=== PATIENT | female | born 1950 | race Caucasian/White ===

== ENCOUNTER 2016-10-13 09:44 | Inpatient (IN) | payer OTHER ==
--- NOTE | 2016-10-12 11:00 | GHP ---
[f rep st] PREOP HISTORY AND PHYSICAL DATE OF ADMISSION: 10/13/2016 PROBLEM: Right knee degenerative arthritis. HISTORY OF PRESENT ILLNESS: The patient is a 66-year-old woman admitted for right total knee arthro plasty. She has had progressive pain and deformity in both knees for the past several years. Her r ight knee is more painful than the left. In March 2016, she had viscosupplementation injections in her hometown of [place], [place]. They did not help. She is having daily pain. Her knees are painful going up and down stairs. She takes Aleve every day. Her activities of daily living are ve ry limited. She has failed physical therapy, oral anti-inflammatory medication and viscosupplementa tion injections. PAST MEDICAL HISTORY: Overall, she is in excellent general health. I have done bilateral total hip arthroplasties on her. No history of coronary artery disease, DVT, hepatitis or sleep apnea. CURRENT MEDICATIONS: None. DRUG ALLERGIES: None. METAL ALLERGY: None. FAMILY HISTORY: Positive for cancer and arthritis. PHYSICAL EXAMINATION: GENERAL: She is a thin healthy-appearing woman. Height 5 feet 7 inches. We ight 125 pounds. BMI 19.6. EYES: The conjunctivae and sclerae are clear. Pupils are round and re active. MOUTH: Good oral hygiene. No loose teeth. CHEST: Clear. HEART: Regular rhythm. No mu rmurs. EXTREMITIES: Pertinent findings limited to her right knee. She has full extension and 130 degrees of flexion. A mild effusion is present. She has increased valgus alignment. Mild pseudola xity of her lateral collateral ligament. IMAGING: Her films show advanced lateral compartment degenerative arthritis, she is sgnk-ps-eome. She has subchondral sclerosis and peripheral osteophytes. Increased valgus alignment is present. IMPRESSION ON ADMISSION: 1. Bilateral knee severe degenerative arthritis with valgus deformity. 2. Status post bilateral total hip arthroplasties. PLAN: She will undergo a right total knee arthroplasty. The surgery has been described to her, inc luding the risks, complications, expectations and recovery time. I have stressed the importance of postoperative physical therapy. I have advised her that a small percentage of people do not get a g ood result with a total knee replacement. All her questions have been answered, and she consents to surgery. Copy requested to: Dr. Earnestine Livingston [address] [place] [id number] /[id number]/MODL
[2016-10-12 11:43] LABS: % IMMATURE GRANULYOCYTES 0.2 % (0.0-1.1); ABSOLUTE IMMATURE GRANULOCYTES 0.01 10^3/uL (0.00-0.10); ADD DIFF? NO; ADD MORPH? NO; ADD SCAN? NO; ATYPICAL LYMPHOCYTE FLAG 0 (0-99); FRAGMENT RBC FLAG 0 (0-99); HEMATOCRIT 42.5 % (38.0-47.0); HEMOGLOBIN 14.3 g/dL (12.6-16.3); LEFT SHIFT FLG 0 (0-99); LIPEMIA HEMOLYSIS FLAG 80 (0-99); MEAN CELL HEMOGLOBIN 31.5 pg (27.9-34.1); MEAN CELL HEMOGLOBIN CONCENTR. 33.6 g/dL (32.4-36.7); MEAN CELL VOLUME 93.6 fL (81.5-99.8); MEAN PLATELET VOLUME 9.6 fL (8.7-11.7); PLATELET CLUMPS FLAG 0 (0-99); PLATELET COUNT 300 10^3/uL (150-400); RED BLOOD CELL COUNT 4.54 10^6/uL (4.18-5.33); RED CELL DISTRIBUTION WIDTH 13.1 % (11.5-15.2)
[~2016-10-13 09:44] MED LIST: ACETAMINOPHEN 325 MG TAB PO ONE; CEFAZOLIN 2 GM/DEXTR 100 ML IV ONE; CHLORHEXIDINE GLUC HIBICLENS 118 ML BTL TP ONE; DEXAMETHASONE 4 MG/ML VIAL IVP ONE; FAMOTIDINE 20 MG TAB PO ONE; NS IV ONE; POVIDONE-IODINE 20 ML in SODIUM CL IRRIG SOLUTION 500 ML IRR ONE; ROPI/epiNEPH/KETOROLAC JOINT COCKTAIL IU ONE; TRANEXAMIC ACID IV ONE; VANCOMYCIN 1 GM VIAL IV ONE; ceFAZolin 1 GM/5 ML SYR ONE
[2016-10-13] MEDS ORDERED: LIDOCAINE 1% 2 ML INJ ONE (10:00)
[2016-10-13] MEDS ORDERED: ACETAMINOPHEN 325 MG TAB ONE (10:01)
[2016-10-13] MEDS ORDERED: DEXAMETHASONE 4 MG/ML VIAL ONE (10:01)
[2016-10-13] MEDS ORDERED: FAMOTIDINE 20 MG TAB ONE (10:01)
[2016-10-13] MEDS ORDERED: CEFAZOLIN 2 GM/DEXTROSE/100 ML BAG IV ONE (10:02)
[2016-10-13] MEDS ORDERED: LIDOCAINE 1% 5 ML SDV ID PRN (10:37)
[2016-10-13] MEDS ORDERED: LR 1,000 ML IV ONE (10:37)
[2016-10-13] MEDS ORDERED: MIDAZOLAM 2 MG/2 ML VIAL ONE (11:28)
[2016-10-13] MEDS ORDERED: fentaNYL 100 MCG/2 ML INJ ONE (11:33)
[2016-10-13] MEDS ORDERED: PROPOFOL/EMULSION 500 MG/50 ML BOTTLE IV ONE (11:34)
[2016-10-13] MEDS ORDERED: PROPOFOL 200 MG/20 ML VIAL ONE ×3 (12:49→13:47)
[2016-10-13] MEDS ORDERED: traMADol 50 MG TAB PO PRN (13:41)
[2016-10-13] MEDS ORDERED: TEMAZEPAM 15 MG CAP PO PRN (13:41)
[2016-10-13] MEDS ORDERED: ONDANSETRON DISINTEGRATING 4 MG TAB PO PRN (13:41)
[2016-10-13] MEDS ORDERED: PHARMACY PAIN CONSULT 1 EA MISC PRN (13:41)
[2016-10-13] MEDS ORDERED: BISACODYL 10 MG SUPP PR PRN (13:41)
[2016-10-13] MEDS ORDERED: PROMETHAZINE HCL 25 MG SUPPR PR PRN (13:41)
[2016-10-13] MEDS ORDERED: ONDANSETRON 4 MG/2 ML VIAL IVP PRN (13:41)
[2016-10-13] MEDS ORDERED: DIPHENOXYLATE/ATROPINE LOMOTIL 1 TAB PO PRN (13:41)
[2016-10-13] MEDS ORDERED: KETOROLAC 30 MG/1 ML SDV IVP PRN (13:41)
[2016-10-13] MEDS ORDERED: NS 500 ML IV PRN (13:41)
[2016-10-13] MEDS ORDERED: POLYETHYLENE GLYCOL 3350 17 GM PKT PO PRN (13:41)
[2016-10-13] MEDS ORDERED: diphenhydrAMINE 25 MG CAP PO PRN (13:41)
[2016-10-13] MEDS ORDERED: METOCLOPRAMIDE 10 MG/2 ML VIAL IVP PRN (13:41)
[2016-10-13] MEDS ORDERED: LACTULOSE 20 GM/30 ML UDCUP PO PRN (13:41)
[2016-10-13] MEDS ORDERED: MAGNESIUM HYDROXIDE 30 ML UDCUP PO PRN (13:41)
--- NOTE | 2016-10-13 13:41 | POSTOPPROG ---
Post Op Note Date of Operation: 10/13/16 Surgeon: Rolando Renteria Round Kiln Drawer: Lico/Camilla Anesthesiologist: Gregory Anesthesia: IV Sedation, Spinal Post-op Diagnosis: right knee arthritis Procedure: R TKA Inf/Abcess present in the surg proc area at time of surgery?: No EBL: 100-500
[2016-10-13] MEDS ORDERED: ACYCLOVIR 400 MG TAB PO PRN (13:43)
[2016-10-13] MEDS ORDERED: LR 1,000 ML IV SCH (14:00)
--- NOTE | 2016-10-13 14:54 | GOP ---
[f rep st] OPERATIVE REPORT DATE OF OPERATION: 10/13/2016 SURGEON: Rolando Renteria MD MECHANICAL EQUIPMENT SALES ENGINEER: Alfred Barfield CFA and Nury Burkett RN. ANESTHESIA: A combination of Marcaine spinal and IV sedation and adductor canal block. ANESTHESIOLOGIST: Marck Jenkins MD. PREOPERATIVE DIAGNOSIS: Right knee severe degenerative arthritis. POSTOPERATIVE DIAGNOSIS: Right knee severe degenerative arthritis with valgus deformity. PROCEDURE PERFORMED: Right total knee arthroplasty, subvastus approach, cemented, Carmen and Nephew Journey II, posterior stabilized. FINDINGS: DESCRIPTION OF PROCEDURE: The patient was given 2 g of preoperative IV Ancef within 60 minutes of s urgery. She also received a double dose of IV tranexamic acid at a dose of 10 mg/kg. She was place d on the operating room table and given spinal anesthesia with Marcaine by Dr. Jenkins. She was then placed supine and given IV sedation. A Glaser catheter was not used. She wore a PREMA stocking and S CD on the nonoperative leg. Her right lower extremity was prepped with ChloraPrep from the upper thigh tourniquet to the tips of the toes. It was draped free using sterile sheets, stockinette, and Ioban plastic adhesive drape. The right lower leg was wrapped with Coban. The leg was exsanguinated with elevation and a 6-inch compressive wrap, and the tourniquet was inflated to 250 mmHg. The [employer] time-out was performed to verify the correct patient identity and the correct surgical site and side. The [place] time-out was also performed. The QFPayayo leg holding device was sterilely attached to the operating room table and used throughout the procedure to help position the knee. A straight midline incision was made centered on the ivy lla. Subcutaneous tissues were sharply divided, and hemostasis was obtained using electrocautery. A medial subcutaneous flap was developed. I was using the subvastus approach. I made a slightly ob lique incision through the medial capsule beginning at about the midpoint of the patella. This was extended proximally along the posteromedial margin of the vastus medialis, dissecting it off the pos teromedial intermuscular septum. This allowed me to mobilize the entire vastus medialis and quadric eps to sublux the patella laterally. I completed the arthrotomy distally in a medial parapatellar f ashion. The medial capsule and periosteum were elevated off the rim of the medial tibial plateau al l around to the posteromedial corner. A medial collateral ligament was released enough to balance t he medial side of the knee. In order to improve exposure, her patella was prepared first. The original thickness of the patella was measured. Peripheral osteophytes were removed. I cut a flat surface on the back of the leo richards. She was sized for a 38 mm resurfacing component. I removed enough bone from the patella such th at the remaining bone plus the thickness of the patella recreated the original thickness of the biju lla. The composite thickness of her patella was 24 mm. The intramedullary alignment guide system was used to set up the distal femoral cut. The distal fem ur was cut in 5 degrees of valgus. I made a +2 mm cut on the distal femur. The sizing jig was used to determine proper femoral sizing. She was a true size 5 without shifting the jig. The 5-in-1 cu tting block was applied, and the anterior and posterior condylar cuts and chamfer cuts were made. T he final jig was used to remove the central portion of the distal femur to accommodate the posterior stabilized femoral component. I was careful to achieve proper rotation by referencing off [place] line. Each cut was checked for accuracy before and after it was made. Her femur was sized for a size 5 posterior stabilized component. The trial component was tapped securely into place and was a good fit. Next, the tibia was prepared. The proximal tibial cut was made using the extramedullary alignment g uide system. The cut was made in a few degrees of posterior slope. I was careful to achieve proper varus/valgus alignment and proper rotation. The posterior compartment was cleared of meniscal remn ants. Osteophytes were removed from the back of the femoral condyles. I checked the flexion and ex tension gaps, and they were equal, balanced and rectangular. The tibia was sized for a size 4 component. With the trial components in place, I selected a 10 mm polyethylene posterior stabilized tibial insert. The knee came to full extension and flexed to 130 degrees. There was no overstuffing in flexion. Her collateral ligaments were stable and balanced i n 90 degrees of flexion and full extension. The trial button was applied. Patellar tracking was ch ecked. Tracking was excellent without any digital pressure. 40 mL of the joint anesthetic cocktail were injected into the posterior capsule, the periarticular s tructures, the quadriceps muscle and tendon areas, and the subcutaneous tissues along the skin edges . I did not administer a 2nd dose of IV tranexamic acid because she received a double dose at the b eginning of the case. The surfaces were prepared for cementing. They were carefully cleaned with a pulsating lavage irrigation and thoroughly dried. The CarboJet device was used to blow dry the can cellous surfaces. A double batch of high viscosity cement with 2 g of powdered vancomycin added was mixed. All 3 components were cemented in place. Excess cement was removed before it hardened. The 10 mm tibial insert was re-tried and was the proper thickness. The actual component was inserte d and locked into place. The knee was thoroughly irrigated 1 final time with a dilute Betadine solu tion. The pneumatic tourniquet was deflated, and the total tourniquet time was 60 minutes. The med ial capsule was closed first with a couple of interrupted onjutn-vw-yxtyf #2 FiberWire sutures. The capsule and synovium were closed first with multiple dzilji-ue-wyfqo 0 PDS sutures, followed by a running 0 barbed Ethicon Stratafix Monoderm suture. The skin was closed with a running 3-0 barbed Ethicon Stratafix Monoderm subcuticular suture. The skin was sealed with 1/2-inch Steri-Strips. T he wound was covered with Xeroform, gauze and flat 4 x 4's, and the knee was wrapped with a Kerlix a nd a 6-inch compressive wrap. A long-leg PREMA stocking and SCD were applied, followed by the cooling device. The patient wore a stocking and SCD on the opposite leg during the procedure. I used a size 5 cemented Carmen and Nephew Oxinium posterior stabilized femoral component, a size 4 c emented tibial base plate, a 10 mm posterior stabilized tibial insert, and a 38 mm cemented, round a ll-polyethylene resurfacing patellar component. The estimated blood loss following deflation of the tourniquet was about 100 mL. The sponge and needle count were correct on 2 occasions. The patient was awakened from anesthesia, [facility] and [facility] to [facility] in sa tisfactory condition. There were no recognized intraoperative complications. In the recovery room, for additional postoperative pain control, Dr. Marck Jenkins administered an adductor canal block. Alfred Barfield and Nury Burkett acted as surgical assistants. Their assistance was a medical necess ity. Copy requested to: Dr. [place], [place] /[id number]/MODL
[2016-10-13] MEDS: ACETAMINOPHEN 325 MG TAB PO SCH (17:22)
[2016-10-13] MEDS: oxyCODONE IR 5 MG TAB PO PRN ×3 (17:22→21:37)
[2016-10-13] MEDS: ASPIRIN 325 MG TAB PO SCH (19:45)
[2016-10-13] MEDS: ceFAZolin 2 GM/DEXTROSE 100 ML IV SCH (19:46)
[2016-10-13] MEDS: SENNOSIDES/DOCUSATE SODIUM TAB PO SCH (19:46)
[2016-10-13] MEDS: FAMOTIDINE 20 MG TAB PO SCH (19:46)
[2016-10-14] MEDS: CYCLOBENZAPRINE 10 MG TAB PO PRN ×2 (00:01→07:57)
[2016-10-14] MEDS: oxyCODONE IR 5 MG TAB PO PRN ×4 (00:29→11:43)
[2016-10-14 04:59] LABS: HEMATOCRIT 35.1 % (38.0-47.0); HEMOGLOBIN 11.7 g/dL (12.6-16.3)
[2016-10-14] MEDS: ceFAZolin 2 GM/DEXTROSE 100 ML IV SCH (05:03)
[2016-10-14] MEDS: ACETAMINOPHEN 325 MG TAB PO SCH ×3 (05:03→11:43)
[2016-10-14] MEDS: SENNOSIDES/DOCUSATE SODIUM TAB PO SCH (07:56)
[2016-10-14] MEDS: ASPIRIN 325 MG TAB PO SCH (07:56)
[2016-10-14] MEDS: FAMOTIDINE 20 MG TAB PO SCH (07:57)
[2016-10-14] MEDS ORDERED: FERROUS SULFATE 140 MG TAB.ER PO SCH (09:00)
--- NOTE | 2016-10-14 09:25 | SOAPPROG ---
SOAP Progress Note Assessment/Plan: Assessment: Afebrile. Awake and alert. Moderate pain. Light headed when up. Has walked and done stairs. Dsg is dry. H/H is good. Plan:Up with PT. Home later today if stable. 10/14/16 09:24 Objective: Vital Signs Temp Pulse Resp BP Pulse Ox 36.6 C 64 16 111/62 98 10/14/16 05:04 10/14/16 05:04 10/14/16 05:04 10/14/16 05:04 10/14/16 05:04 Laboratory Results 10/14/16 04:27 10/13/16 10/14/16 10/15/16 05:59 05:59 05:59 Intake Total 1910 Output Total 1375 Balance 535 ICD10 Worksheet Patient Problems: Problems Problem Status Onset Osteoarthritis of right knee Acute Primary osteoarthritis of left hip Acute
--- NOTE | 2016-10-14 10:06 | GDS ---
[f rep st] DISCHARGE SUMMARY ADMISSION DIAGNOSIS: Right knee severe degenerative arthritis with valgus deformity. DISCHARGE DIAGNOSIS: Right knee severe degenerative arthritis with valgus deformity. OPERATION PERFORMED: 10/13/2016, a right total knee arthroplasty. POSTOPERATIVE COMPLICATIONS: None. CONDITION ON DISCHARGE: Improved. DESCRIPTION OF HOSPITAL COURSE: The patient was admitted to the hospital on the morning of surgery. Her admission CBC was normal. The same day, under a combination of spinal anesthesia with Marcaine, IV sedation and an adductor canal block, she underwent a right total knee arthroplasty. Postoperatively, she was treated with multimodal DVT prophylaxis including early mobilization and aspirin. On the first postoperative day, her hemoglobin and hematocrit were 11.7 and 35.1. She did not require any transfused blood. She experienced some early postural hypotension. She was seen by Physical Therapy and made satisfactory progress with ambulation and stairs. DISPOSITION: The patient is discharged to her home in [place], [place]. She will start outpatient physical therapy next week. Continue aspirin 325 mg p.o. daily for 21 days. She has prescriptions for oxycodone and tramadol for pain control. Use PREMA stockings for 1 week. I will see her back in the office on October 22, 2016. If there are any problems, she is to call me at the office. Copy requested to: Dr. Edwin Smyth [place], [place] /[id number]/MODL MTDD
[2016-10-14 11:34] VITALS: RESP 14; TEMP 97.6
[2016-10-14 11:35] VITALS: BP 112/60; PULSE 71; O2SAT 98
== END 2016-10-14 15:30 | disposition home or self-care (01) | DRG 470 ==
LOC: F3E 09:44 → F3N 15:14
PROVIDERS: ADMIT Orthopaedic Surgery; ATTEND Orthopaedic Surgery
PROC: 0SRC0J9 Replacement of Right Knee Joint with Synthetic Substitute, Cemented, Open Approach (ICD-10-PCS; principal; 2016-10-13 11:30)
DX: M17.11 Unilateral primary osteoarthritis, right knee (principal); M21.061 Valgus deformity, not elsewhere classified, right knee; Z96.643 Presence of artificial hip joint, bilateral
CPT/HCPCS: 97116-GP; 97161-GP; 97165-GO; C1713; G8978-GP-CI; G8979-GP-CI; G8980-GP-CI; G8984-GO-CI; G8985-GO-CI; G8986-GO-CI; J0171; J0690; J1100; J1885; J2250; J2704; J2795; J3010; J3370

== ENCOUNTER 2016-12-08 09:51 | Inpatient (IN) | payer OTHER ==
--- NOTE | 2016-12-07 14:46 | GHP ---
[f rep st] PREOP HISTORY AND PHYSICAL DATE OF ADMISSION: 12/08/2016 She will be an a.m. admission for surgery at [facility] on Thursday, December 08, 2016. PROBLEM: Left knee advanced degenerative arthritis. HISTORY OF PRESENT ILLNESS: The patient is a 66-year-old woman, admitted for a left total knee arth roplasty. She has had progressive pain and deformity in both knees over the past several years. Rozina abrams has tried viscosupplementation injections, which did not help. She is having daily pain. Her kne es are painful going up and down stairs. She is taking Aleve every day. Her activities are very li mited. She has failed physical therapy, oral anti-inflammatory medication, and viscosupplementation injections. She underwent a right total knee arthroplasty on October 13, 2016, and she is making sat isfactory progress. She will undergo a left total knee arthroplasty now. PAST MEDICAL HISTORY: Excellent general health. No history of heart disease, DVT, hepatitis, or sl eep apnea. I have done bilateral total hip arthroplasties. CURRENT MEDICATIONS: None. DRUG ALLERGIES: None. METAL ALLERGY: None. FAMILY HISTORY: Positive for cancer and arthritis. PHYSICAL EXAMINATION: GENERAL: She is a thin, healthy-appearing woman. Height 5 feet 7 inches. W eight 125 pounds. BMI 19.6. EYES: The conjunctivae and sclerae are clear. Pupils are round and r eactive. MOUTH: Good oral hygiene. No loose teeth. CHEST: Clear. HEART: Regular rhythm. No m urmurs. EXTREMITIES: Pertinent findings are limited to her left knee. She has full extension and 125 degrees of flexion. A mild effusion is present. She has slightly increased valgus alignment. Mild pseudolaxity of her lateral collateral ligament. IMAGING: Films show lateral compartment degenerative arthritis. She has subchondral sclerosis and peripheral osteophytes. Mildly increased valgus alignment is present. IMPRESSION: 1. Left knee degenerative arthritis. She will undergo a left total knee arthroplasty. 2. Eight weeks status post right total knee arthroplasty. 3. Status post bilateral total hip arthroplasties. PLAN: She will undergo a left total knee arthroplasty. The surgery has been described to her, incl uding the risks, complications, expectations, and recovery time. I have stressed the importance of postoperative physical therapy. She understands that a small percentage of people do not obtain a s atisfactory result with a total knee replacement. I have also advised her that with bilateral proce dures there can be mild sftp-jf-hlhp differences in the recovery and even in the final result. All her questions have been answered, and she consents to surgery. Copy requested to: Dr. Earnestine Livingston [address] [place], [place] [address] /[id number]/MODL
[~2016-12-08 09:51] MED LIST changes: -VANCOMYCIN 1 GM VIAL IV ONE; -ceFAZolin 1 GM/5 ML SYR ONE
[2016-12-08] MEDS ORDERED: VANCOMYCIN 1 GM VIAL ONE (10:30)
[2016-12-08] MEDS ORDERED: ceFAZolin 1 GM/5 ML SYR ONE (10:31)
[2016-12-08] MEDS ORDERED: DEXAMETHASONE 4 MG/ML VIAL ONE ×2 (10:48→12:32)
[2016-12-08] MEDS ORDERED: FAMOTIDINE 20 MG TAB ONE (10:48)
[2016-12-08] MEDS ORDERED: ACETAMINOPHEN 325 MG TAB ONE (10:49)
[2016-12-08] MEDS ORDERED: CEFAZOLIN 2 GM/DEXTROSE/100 ML BAG IV ONE (10:49)
[2016-12-08] MEDS ORDERED: MIDAZOLAM 2 MG/2 ML VIAL ONE (11:47)
[2016-12-08] MEDS ORDERED: fentaNYL 100 MCG/2 ML INJ ONE ×2 (11:53→13:25)
[2016-12-08] MEDS ORDERED: PROPOFOL/EMULSION 500 MG/50 ML BOTTLE IV ONE (11:54)
[2016-12-08] MEDS ORDERED: ONDANSETRON 4 MG/2 ML VIAL ONE (12:32)
[2016-12-08] MEDS ORDERED: ROPIVACAINE HCL 150 MG/30 ML INJ ONE (13:25)
--- NOTE | 2016-12-08 13:31 | POSTOPPROG ---
Post Op Note Date of Operation: 12/08/16 Surgeon: Rolando Renteria Web Sizer: Clifton/Luz Anesthesiologist: Beatriz Anesthesia: IV Sedation, Spinal Post-op Diagnosis: left knee arthritis Procedure: L TKA Inf/Abcess present in the surg proc area at time of surgery?: No EBL: 50-100 (Add canal block)
[2016-12-08] MEDS ORDERED: ACYCLOVIR 400 MG TAB PO PRN (13:46)
[2016-12-08] MEDS ORDERED: traMADol 50 MG TAB PO PRN (13:47)
[2016-12-08] MEDS ORDERED: POLYETHYLENE GLYCOL 3350 17 GM PKT PO PRN (13:47)
[2016-12-08] MEDS ORDERED: DIPHENOXYLATE/ATROPINE LOMOTIL 1 TAB PO PRN (13:47)
[2016-12-08] MEDS ORDERED: ONDANSETRON DISINTEGRATING 4 MG TAB PO PRN (13:47)
[2016-12-08] MEDS ORDERED: PROMETHAZINE HCL 25 MG SUPPR PR PRN (13:47)
[2016-12-08] MEDS ORDERED: diphenhydrAMINE 25 MG CAP PO PRN (13:47)
[2016-12-08] MEDS ORDERED: MAGNESIUM HYDROXIDE 30 ML UDCUP PO PRN (13:47)
[2016-12-08] MEDS ORDERED: METOCLOPRAMIDE 10 MG/2 ML VIAL IVP PRN (13:47)
[2016-12-08] MEDS ORDERED: LACTULOSE 20 GM/30 ML UDCUP PO PRN (13:47)
[2016-12-08] MEDS ORDERED: PHARMACY PAIN CONSULT 1 EA MISC PRN (13:47)
[2016-12-08] MEDS ORDERED: ONDANSETRON 4 MG/2 ML VIAL IVP PRN (13:47)
[2016-12-08] MEDS ORDERED: TEMAZEPAM 15 MG CAP PO PRN (13:47)
[2016-12-08] MEDS ORDERED: NS 500 ML IV PRN (13:47)
[2016-12-08] MEDS ORDERED: BISACODYL 10 MG SUPP PR PRN (13:47)
[2016-12-08] MEDS ORDERED: CYCLOBENZAPRINE 10 MG TAB PO PRN (13:47)
[2016-12-08] MEDS ORDERED: LR 1,000 ML IV SCH (14:00)
--- NOTE | 2016-12-08 15:31 | GOP ---
[f rep st] OPERATIVE REPORT DATE OF OPERATION: 12/08/2016 SURGEON: Rolando Renteria MD JUKEBOX OPERATOR: Tirso Lazo, PAC, and Alfred Barfield CFA. ANESTHESIA: A combination of Marcaine spinal, IV sedation, and adductor canal block. ANESTHESIOLOGIST: Macy Henderson MD. PREOPERATIVE DIAGNOSIS: Left knee degenerative arthritis with valgus deformity. POSTOPERATIVE DIAGNOSIS: Left knee degenerative arthritis with valgus deformity. PROCEDURE PERFORMED: Left total knee arthroplasty, cemented, Carmen and Nephew Journey II, posterior stabilized. FINDINGS: DESCRIPTION OF PROCEDURE: The patient was given 2 g of preoperative IV Ancef within 60 minutes of s urgery. She also received IV tranexamic acid at a dose of 10 mg/kg. She was placed on the operatin g room table and given spinal anesthesia with Marcaine by Dr. Henderson. She was then placed supine an d given IV sedation. A Glaser catheter was not used. A PREMA stocking and SCD were placed on the nono perative leg. Her left lower extremity was prepped with ChloraPrep from the upper thigh tourniquet to the tips of the toes. It was draped free using sterile sheets, stockinette, and Ioban plastic ad hesive drape. The lower leg was wrapped with compressive Coban. The leg was exsanguinated with elevation and a 6- inch compressive wrap, and the pneumatic tourniquet was inflated to 250 mmHg. The [facility] time-out was performed to verify the correct patient identity and the correct surgical side and site. The [place] time-out was also performed. The [facility] leg holding device was sterilely attached to the operating room table and used throughou t the procedure to help position the knee. A straight midline incision was made, centered on the pa tella. Subcutaneous tissue was sharply divided and hemostasis was obtained using electrocautery. A medial subcutaneous flap was developed and the capsule and synovium were opened in a medial parapat ellar fashion. Extensive degenerative changes were present in her lateral compartment. She was ero ded down to subchondral bone on her lateral femoral condyle. The medial capsule and periosteum were elevated off the rim of the medial tibial plateau all the way around to the posterior medial corner . Her medial collateral ligament was released enough to balance the medial side of the knee. In order to improve exposure, her patella was prepared first. The original thickness of the patella was measured. Peripheral osteophytes were removed. I cut a flat surface on the back of the leo richards. It was sized for a 38 mm resurfacing component. I removed enough bone from the patella such pricilla t the remaining bone plus the thickness of the patellar component recreated the original thickness o f the patella. The composite thickness was 25 mm. The intramedullary alignment guide system was used to set up the distal femoral cut. She had a left total hip arthroplasty and I was careful not to advance the IM azalea too far proximally. The distal cut was made in 5 degrees of valgus. Because of a slight preoperative flexion contracture, I made a +2 mm cut on the distal femur. The sizing jig was used to determine proper femoral sizing. I shif prema the size 5 jig anteriorly 1 mm in order to accommodate the size 5 without notching the anterior cortex. The 5-in-1 cutting block was applied, and the anterior and posterior condylar cuts were mad e. The final jig was used to remove the central portion of the distal femur to accommodate the post erior stabilized femoral component. I was careful to determine proper rotation by referencing off [place] line. Each cut was checked for accuracy before and after it was made. Her femur was sized for a size 5 posterior stabilized component. The trial component was tapped securely into place an d was a good fit. Next, the tibia was prepared. The proximal tibial cut was made using the extramedullary alignment g uide system. The cut was made in a few degrees of posterior slope. I was careful to achieve proper varus/valgus alignment and proper rotation. The posterior compartment was cleared of meniscal remn ants. Osteophytes were removed from the back of her femoral condyles. I checked the flexion extens ion gaps, and they were equal, balanced and rectangular. The tibia was sized for a size 4 component. With the trial components in place, I selected a 9 mm p olyethylene posterior stabilized tibial insert. The knee came to full extension and flexed to 130 d egrees. There was no overstuffing in flexion. Her collateral ligaments were stable and balanced in 90 degrees of flexion and full extension. The trial patellar button was applied, and patellar trac andria was checked. Tracking was excellent without any digital pressure. 40 mL of joint anesthetic cocktail was injected in the posterior capsule, the periarticular structur es, the quadriceps muscle and tendon areas, and the subcutaneous tissues along with skin edges. A s econd dose of IV tranexamic acid was given at a dose of 10 mg/kg. The surfaces were prepared for cementing. They were carefully cleaned with the pulsating lavage irr igation and thoroughly dried. The CarboJet device was used to blow dry the cancellous surfaces. A double batch of high viscosity methylmethacrylate cement with 2 g of powdered vancomycin added was m ixed. While it was still in a semiliquid state, all 3 components were cemented in place. Excess ce ment was removed before it hardened. The 9 mm trial tibial insert was re-tried and was the proper thickness. The actual component was in serted and locked into place. The knee was thoroughly irrigated 1 final time with a dilute Betadine solution. The tourniquet was deflated. Total tourniquet time was 45 minutes. The vastus medialis portion of the extensor mechanism was repaired with several interrupted figure-o f-eight #2 FiberWire sutures. The capsule and synovium were closed first with multiple interrupted tznpso-eb-atmdz 0 PDS sutures, followed by a running #2 barbed Ethicon Stratafix PDO suture. The chu bcutaneous tissues were closed with a running 0 barbed Ethicon Stratafix Monoderm suture. The skin was closed with a running 3-0 barbed Ethicon Stratafix Monoderm subcuticular suture. The skin was s ealed with half-inch Steri-Strips. The wound was covered with Xeroform gauze and flat 4 x 4's. The knee was wrapped with Kerlix and a 6-inch compressive wrap. A long-leg PREMA stocking and SCD were a pplied followed by the cooling device. She wore a stocking and SCD on the opposite leg during the p rocedure. I used a size 5 cemented Carmen and Nephew Oxinium posterior stabilized femoral component, size 4 anastasiya ented tibial base plate, 9 mm posterior stabilized tibial insert, and a 38 mm cemented round all-kellen yethylene resurfacing patellar component. The estimated blood loss following deflation of the tourniquet was about 100 mL. The sponge and needle count were correct on 2 occasions. She was awakened from anesthesia, transferred [facility], and taken to PACU in satisfact ory condition. There were no intraoperative complications. In the recovery room, for additional postoperative pain control, Dr. Henderson performed an adductor ca nal block. Alfred Barfield and Michael Lazo acted as surgical assistants. Their assistance was a medical haleigh bailey. Copy requested to: Dr. Earnestine Livingston [address] [place] [address] [place] [address] /[id number]/MODL
[2016-12-08] MEDS: ACETAMINOPHEN 325 MG TAB PO SCH ×2 (18:04→23:50)
[2016-12-08] MEDS: oxyCODONE IR 5 MG TAB PO PRN ×3 (18:05→23:56)
[2016-12-08] MEDS: KETOROLAC 30 MG/1 ML SDV IVP PRN ×2 (18:05→23:51)
[2016-12-08] MEDS: TRANEXAMIC ACID 650 MG TAB PO SCH (20:41)
[2016-12-08] MEDS: FAMOTIDINE 20 MG TAB PO SCH (20:42)
[2016-12-08] MEDS: SENNOSIDES/DOCUSATE SODIUM TAB PO SCH (20:42)
[2016-12-08] MEDS: ASPIRIN 325 MG TAB PO SCH (20:42)
[2016-12-08] MEDS: ceFAZolin 2 GM/DEXTROSE 100 ML IV SCH (20:43)
[2016-12-09] MEDS: ceFAZolin 2 GM/DEXTROSE 100 ML IV SCH (02:43)
[2016-12-09] MEDS: TRANEXAMIC ACID 650 MG TAB PO SCH (02:45)
[2016-12-09] MEDS: oxyCODONE IR 5 MG TAB PO PRN ×2 (02:47→05:52)
[2016-12-09 04:53] VITALS: PULSE 70
[2016-12-09 05:13] LABS: HEMATOCRIT 35.7 % (38.0-47.0); HEMOGLOBIN 12.1 g/dL (12.6-16.3)
[2016-12-09] MEDS: ACETAMINOPHEN 325 MG TAB PO SCH ×2 (05:50→12:32)
[2016-12-09] MEDS: ASPIRIN 325 MG TAB PO SCH (08:33)
[2016-12-09] MEDS: SENNOSIDES/DOCUSATE SODIUM TAB PO SCH (08:33)
[2016-12-09] MEDS: FAMOTIDINE 20 MG TAB PO SCH (08:34)
[2016-12-09 08:45] VITALS: BP 138/71; RESP 18; TEMP 98.2; O2SAT 95
[2016-12-09] MEDS ORDERED: FERROUS SULFATE 140 MG TAB.ER PO SCH (09:00)
--- NOTE | 2016-12-09 09:28 | SOAPPROG ---
SOAP Progress Note Assessment/Plan: Assessment: Afebrile. Mild pain. Up and walking. H/H is good. Films look good. Plan: Up with PT. DC later today. 12/09/16 09:27 Objective: Vital Signs Temp Pulse Resp BP Pulse Ox 36.8 C 70 18 138/71 H 95 12/09/16 08:00 12/09/16 08:00 12/09/16 08:00 12/09/16 08:00 12/09/16 08:00 Laboratory Results 12/09/16 04:28 12/08/16 12/09/16 12/10/16 05:59 05:59 05:59 Intake Total 2730 Output Total 1450 Balance 1280 ICD10 Worksheet Patient Problems: Problems Problem Status Onset Osteoarthritis of left knee Acute Osteoarthritis of right knee Acute Primary osteoarthritis of left hip Acute
--- NOTE | 2016-12-09 09:29 | PDIAF ---
- Diagnosis Diagnosis: left knee OA Code Status: Full Code - Medication Management Discharge Medications: Medications to Continue on Transfer Acyclovir [Zovirax 400 mg (*)] 400 mg PO BID PRN 04/25/15 [Last Taken 10/06/16] Docusate Sodium [Colace 100 MG (*)] 100 mg PO DAILY PRN 11/19/16 [Last Taken Unknown] Acetaminophen [Tylenol 325mg (*)] 650 mg PO Q6HRS #0 tab 12/09/16 [Last Taken Unknown] Aspirin [Aspirin 325 mg (*)] 325 mg PO DAILY #21 tab 12/09/16 [Last Taken Unknown] Cyclobenzaprine [Flexeril 10 MG (*)] 10 mg PO Q8HRS PRN #30 tab 12/09/16 [Last Taken Unknown] Ferrous Sulfate [Slow Fe 140 MG (*)] 140 mg PO DAILY #30 tab.er 12/09/16 [Last Taken Unknown] Ondansetron Odt [Zofran Odt 4 mg (*)] 4 mg PO Q4HRS PRN #0 tab 12/09/16 [Last Taken Unknown] oxyCODONE IR [Oxycodone Ir (*)] 5 - 10 mg PO Q3HRS PRN #0 tab 12/09/16 [Last Taken Unknown] traMADol [Ultram 50 mg (*)] 50 mg PO Q6HRS PRN #0 tab 12/09/16 [Last Taken Unknown] Discharge Medications: Refer to the Discharge Home Medication list for PRN reason. PICC Care - Routine: N/A - Orders Services needed: Home Care, Physical Therapy Home Care Face to Face: I certify that this patient was under my care and that I had the required [id number] encounter meeting the encounter requirements on the discharge day. My findings support the fact that the patient is homebound as defined in CMS Chapter 7 Medicare Benefits Manual 30.1.1, The condition of the patient is such that there exists a normal inability to leave home and consequently, leaving home would require a considerable and taxing effort. Diet Recommendation: no restrictions on diet Diet Texture: Regular Texture Diet Glaser: Not applicable Vincent Stockings Discontinue Date: 1 week Wound Care Instructions: keep clean and dry. You may shower. Activity/Weight Bearing Restrictions: as tolerated. - Follow Up Care Current Providers and Referrals: Doctor Not,On Staff, [Primary Care Provider] - Rolando Renteria MD [Medical Doctor] - 12/10/16 10:00 am
--- NOTE | 2016-12-09 09:58 | GDS ---
[f rep st] DISCHARGE SUMMARY ADMISSION DIAGNOSIS: Left knee degenerative arthritis. DISCHARGE DIAGNOSES: Left knee degenerative arthritis. OPERATIONS PERFORMED: December 08, 2016, a left total knee arthroplasty. POSTOPERATIVE COMPLICATIONS: None. CONDITION ON DISCHARGE: Improved. DESCRIPTION OF HOSPITAL COURSE: Patient was admitted to the hospital the morning of surgery. Her a dmission CBC was normal. The same day under combination of Marcaine spinal, IV sedation, and adduct or canal block she underwent a left total knee arthroplasty. Postoperatively, she was treated with multimodal DVT prophylaxis including aspirin and early mobilization. On the first postoperative day , her hemoglobin and hematocrit were 12.1 and 35.7. She was seen by Physical Therapy and made good progress with ambulation and knee range of motion. By the time of discharge, she was afebrile and w as independent in walking. DISPOSITION: The patient discharged to a friend's house in [facility]. [facility] After that, she will return to her home in [place], [place]. Continue aspirin 325 mg p.o. daily for 21 days. She may progress to full weightbearing on the left as tolerated. Wear T ED stockings for 1 week. She has prescriptions for tramadol, oxycodone and Flexeril for pain contro l. If there are any problems, she is to call me at the office. Copy requested to: Dr. Earnestine Livingston [address], [place] /[id number]/[email or web address]
== END 2016-12-09 12:37 | disposition home or self-care (01) | DRG 470 ==
LOC: F3N 09:51
PROVIDERS: ADMIT Orthopaedic Surgery; ATTEND Orthopaedic Surgery
PROC: 0SRD0J9 Replacement of Left Knee Joint with Synthetic Substitute, Cemented, Open Approach (ICD-10-PCS; principal; 2016-12-08 11:30)
DX: M17.12 Unilateral primary osteoarthritis, left knee (principal)
CPT/HCPCS: 97110-GP; 97116-GP; 97161-GP; 97165-GO; C1713; G8978-GP-CK; G8979-GP-CI; G8980-GP-CI; G8987-GO-CI; G8988-GO-CI; G8989-GO-CI; J0171; J0690; J1100; J1885; J2250; J2405; J2704; J2795; J3010; J3370